=== PATIENT | male | born 1965 | race Caucasian/White ===

== ENCOUNTER → 2020-06-19 13:39 | Outpatient (BNVA) | payer BC, SELFPAY | PROVIDERS: PCP Nurse Practitioner Family; Visit Provider Internal Medicine | DX: M25.50 Pain in unspecified joint (principal); D86.9 Sarcoidosis, unspecified; M32.9 Systemic lupus erythematosus, unspecified; R79.82 Elevated C-reactive protein (CRP); F17.210 Nicotine dependence, cigarettes, uncomplicated; Z79.52 Long term (current) use of systemic steroids | CPT/HCPCS: 99204 ==

== ENCOUNTER 2020-07-12 13:18 | Emergency (ER) | payer BC, SELFPAY ==
[2020-07-12 13:44] VITALS: BP 120/76; PULSE 78; RESP 16; TEMP 36.4; O2SAT 100; BMI 25.8
[2020-07-12 15:27] LABS: Basophils % 0.4 %; Eosinophils # 0.2 10^3/uL (0.0-0.8); Eosinophils % 2.3 %; Hematocrit 29.9 % (42.0-52.0); Hemoglobin 8.7 g/dL (11.7-16.6); Lymphocytes # 5.1 10^3/uL (0.8-4.8); Lymphocytes % 71.8 %; Mean Corpuscular HGB Conc 29.1 g/dL (30.0-36.0); Mean Corpuscular Hemoglobin 19.3 pg (28.0-34.0); Mean Corpuscular Volume 66.3 fL (80-94); Mean Platelet Volume 9.5 fL (7.4-10.4); Monocytes % 13.5 %; Neutrophils % 11.9 %; Nucleated Red Blood Cells % 0 %; Platelet Count 374 10^3/cmm (130-400); Red Blood Count 4.51 10^6/uL (4.1-5.3); Red Cell Distribution Width 21.1 % (12.1-15.1)
[2020-07-12 15:59] LABS: Alanine Aminotransferase 7 U/L (0-41); Albumin Level 3.5 g/dL (3.5-5.2); Alkaline Phosphatase 91 IU/L (40-130); Anion Gap 14.1 (5-19); Aspartate Amino Transferase 13 U/L (0-40); Blood Urea Nitrogen 7 mg/dL (6-20); Calcium 9.3 mg/dL (8.5-10.5); Carbon Dioxide 26 mmol/L (22-29); Chloride 96 mmol/L (98-107); Glomerular Filtration Rate 173.3 mL/min (90-130); Glucose 91 mg/dL (65-115); Osmolality Calculated 272 mOsm/kg (285-295); Potassium 4.1 mmol/L (3.5-5.1); Sodium 132 mmol/L (136-145); Total Bilirubin 0.2 mg/dL (0.15-1.2); Total Protein 7.5 g/dL (6.6-8.7)
[2020-07-12 16:26] LABS: Neutrophils # 0.83 10^3/uL (1.8-7.7)
[2020-07-12 16:29] LABS: Slide Review Slide Review Perform
[2020-07-12 16:32] LABS: Erythrocyte Sedimentation Rate 91 mm/hr (0-10)
--- NOTE | 2020-07-12 16:54 | PC.NURSE ---
Pt was found getting into his vehicle and stated he was in too much pain to continue to sit in the waiting room. Pt stated he was going to see his PCP in the morning. Pt was encouraged to return to ED for worsening or concerning symptoms. Pt verbalizes understanding of this. Pt left with spouse. PAPER COLORER notified.
--- NOTE | 2020-07-12 18:01 | W.ED.GENADLT ---
HPI - General Adult General: Chief complaint: General Medical Stated complaint: RA flare up Time Seen by Provider: 07/12/20 14:42 History of Present Illness: HPI narrative: 55-year-old male patient presents to the emergency department requesting steroids for his rheumatoid arthritis. He reports woke up this morning, was extremely weak, barely can get out of bed. He reports this occurs with joint flare. Under the care of rheumatology here at [facility] yet has not received his first appointment. Remains on prednisone 5 mg daily. 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 He is requesting increase of prednisone dosing to 20 mg daily as this usually helps. He denies fever chills. Reports joint pain to the hands and knees and shoulders. Onset (ago): day(s) (2) Location: left, right, upper extremity and lower extremity Severity: moderate Pain Consistency: constant Relieving factors: other (Prednisone) Exacerbating factors: movement Associated symptoms: Reports weakness; Deny chest pain, diaphoresis, dyspnea, headache(s), nausea, rash, palpitations or vomiting Treatments prior to arrival: none Review of Systems General: Reports: 10 or more systems reviewed and unremarkable except in HPI and below Const: Denies: fever(s), chills or diaphoresis Eyes: Denies: blurry vision or eye redness ENMT: Denies: throat pain, dental pain or disequilibrium Card: Denies: chest pain, palpitations or irregular heart rhythm Resp: Denies: dyspnea, productive cough, non-productive cough or wheezing GI: Denies: abdominal pain, nausea or vomiting : Denies: dysuria Musc: Reports: extremity swelling, joint swelling, joint redness and joint stiffness; Denies: neck pain or back pain Skin/Breast: Denies: rash or pruritus Neuro: Denies: headache(s), weakness in extremities or behavioral changes Psych: Denies: anxiety or depression Zachariah/Lymph: Denies: easy bruising PFSH ED PFSH: Family History (Updated 06/19/20 @ 13:45 by Olga Mario LPN) Father Hypertension Social History (Updated 06/19/20 @ 13:48 by Olga Mario LPN) Smoking and tobacco status: current every day smoker cigarettes Alcohol intake: never Desire information about substance/drug rehabilitation?: No History of recent travel: No Physical Exam Const: COMMON NORMALS: no acute distress, patient oriented x3 and alert GENERAL APPEARANCE: cooperative, comfortable and well hydrated NUTRITIONAL APPEARANCE: thin ORIENTATION/CONSCIOUSNESS: Yes awake, Yes oriented to person, Yes oriented to place and Yes oriented to time HENMT: COMMON NORMALS: normocephalic, Normal external nose present and moist oral mucous membranes HEAD & SCALP: normocephalic NOSE: Normal external nose present Eye: COMMON NORMALS: Equal, round and reactive pupils present and EOMs intact bilaterally GENERAL EYE: appearance normal, both eyes and all related structures PUPIL: Yes Equal, round and reactive pupils present Neck/C-Spine: COMMON NORMALS: full ROM and no lymphadenopathy GENERAL: Yes normal visual inspection and Yes trachea midline CERVICAL SPINE: Yes cervical ROM normal Lymph: LYMPHATIC: no lymphadenopathy noted Chest: COMMONS NORMALS: normal inspection of the chest Resp: COMMON NORMALS: normal respiratory effort and clear to auscultation bilaterally AUSCULTATION: clear to auscultation bilaterally Cardio: COMMON NORMALS: regular rhythm, S1 normal heart sound present, S2 normal heart sound present and Peripheral pulses 2+ throughout RHYTHM: regular rhythm HEART SOUNDS: S1 normal heart sound present and S2 normal heart sound present PERIPHERAL PULSES: Peripheral pulses 2+ throughout GI: COMMON NORMALS: Soft to palpation and non-tender INSPECTION: Yes normal to inspection PALPATION: Yes Soft to palpation : COMMON NORMALS: Yes no CVA tenderness BLADDER/KIDNEY EXAM: Yes no CVA tenderness Back/Pelvis: COMMON NORMALS: no CVA tenderness and thoracic and lumbar spine normal to inspection Extremity: COMMON NORMALS: normal to inspection and capillary refill normal GENERAL: Yes normal exam except as noted RIGHT UPPER EXTREMITY: Yes hand & digits Right hand and digits: Yes inspection (Negative rheumatoid nodules present, negative erythema), Yes palpation (With palpation of the joints noted), Yes ROM exam (Flexion extension noted) and Yes neurovascular exam (Distally intact) LEFT UPPER EXTREMITY: Yes hand & digits Left hand and digits: Yes inspection (Edema to the joints of the distal PIP, rheumatoid nodules present), Yes palpation (Pain with palpation, negative erythema), Yes ROM (Flexion extension noted) and Yes neurovascular exam (Distally intact) RIGHT LOWER EXTREMITY: Yes knee joint (With swelling, negative erythema) Right knee: Yes inspection, Yes palpation (Slight tenderness with palpation), Yes ROM (Normal flexion extension) and Yes neurovascular exam (Distally intact) LEFT LOWER EXTREMITY: Yes knee joint Left knee: Yes inspection (Negative erythema, swelling present), Yes palpation (Pain to anterior palpation of the knee), Yes ROM (Flexion and extension) and Yes neurovascular exam (Distally intact) Neuro: COMMON NORMALS: patient oriented x3 and no focal motor deficits SENSORIUM/ORIENTATION: Yes alert, Yes oriented to person, Yes oriented to place and Yes oriented to time Psych: COMMON NORMALS: mental status grossly normal, Normal thought process present and cooperative ACTIVITY/MOTOR BEHAVIOR: Yes appropriate eye contact THOUGHT PROCESS: Normal thought process present Skin: COMMON NORMALS: no rashes or lesions noted and turgor normal GENERAL SKIN EXAM: no rashes or lesions noted and turgor normal Course ED course: 55-year-old male patient presents to the emergency department with complaints of rheumatoid arthritis concerns/weakness. Absolute neutrophil count noted to be critical at 0.83. Patient left the emergency department, did not want further work-up. I discussed the case with Dr. Szymanski, awaiting bed here in the ED for visualization with patient in a gown to properly evaluate joints/body for infection. He declined and left prior to disposition. Vital Signs: Vital signs: Vital Signs Temperature 97.5 F L 07/12/20 13:44 Pulse Rate 78 07/12/20 13:44 Respiratory Rate 16 07/12/20 13:44 Blood Pressure 120/76 07/12/20 13:44 Pulse Oximetry 100 07/12/20 13:44 MDM - General Adult Lab Data: Labs: Lab Results 07/12/20 07/12/20 07/12/20 Range/Units 15:22 15:22 15:22 WBC 7.0 (4.0-10.0) 10^3/ uL RBC 4.51 (4.1-5.3) 10^6/u L Hgb 8.7 L (11.7-16.6) g/dL Hct 29.9 L (42.0-52.0) % MCV 66.3 L (80-94) fL MCH 19.3 L (28.0-34.0) pg MCHC 29.1 L (30.0-36.0) g/dL RDW 21.1 H (12.1-15.1) % Plt Count 374 (130-400) 10^3/c mm MPV 9.5 (7.4-10.4) fL Neut % (Auto) 11.9 % Lymph % (Auto) 71.8 % [place] % (Auto) 13.5 % Eos % (Auto) 2.3 % Baso % (Auto) 0.4 % Neut # (Auto) 0.83 L* (1.8-7.7) 10^3/u L Lymph # (Auto) 5.1 H (0.8-4.8) 10^3/u L [place] # (Auto) 1.0 H (0.2-0.9) 10^3/u L Eos # (Auto) 0.2 (0.0-0.8) 10^3/u L Baso # (Auto) 0.0 (0.0-0.1) 10^3/u L Nucleated RBC % (a uto) 0 % Nucleated RBCs # 0.0 /100WBC ESR 91 H (0-10) mm/hr Sodium 132 L (136-145) mmol/L Potassium 4.1 (3.5-5.1) mmol/L Chloride 96 L (98-107) mmol/L Carbon Dioxide 26 (22-29) mmol/L Anion Gap 14.1 (5-19) BUN 7 (6-20) mg/dL Creatinine 0.5 L (0.7-1.2) mg/dL GFR Calculation 173.3 H (90-130) mL/min Glucose 91 (65-115) mg/dL Calculated Osmolal ity 272 L (285-295) mOsm/k g Calcium 9.3 (8.5-10.5) mg/dL Total Bilirubin 0.2 (0.15-1.2) mg/dL AST 13 (0-40) U/L ALT 7 (0-41) U/L Alkaline Phosphata se 91 (40-130) IU/L Total Protein 7.5 (6.6-8.7) g/dL Albumin 3.5 (3.5-5.2) g/dL Globulin 4.0 (1.3-4.6) g/dL Discharge Plan Discharge Patient Disposition: Left Against Medical Advice Prescriptions: No Action escitalopram oxalate 20 mg tablet 20 mg PO DAILY RF: 0 buspirone 30 mg tablet 30 mg PO BID RF: 0 alprazolam 0.5 mg tablet 0.5 mg PO BID PRN (Reason: anxiety) RF: 0 quetiapine [Seroquel] 100 mg tablet 200 mg PO DAILY RF: 0 prednisone 5 mg tablet 5 mg PO DAILY Qty: 30 RF: 1 hydroxychloroquine 200 mg tablet 200 mg PO BID Qty: 60 RF: 3 Referrals: ELOINA MITCHELL APRN [Primary Care Provider] - Discharge Date/Time: 07/12/20 16:59 Coding Level of Care Code ED Audiology Director for Minh Callahan
== END 2020-07-12 16:59 | disposition left against medical advice (07) ==
PROVIDERS: Family Medicine; Emergency Provider Nurse Practitioner Family; PCP Nurse Practitioner Family
DX: M06.9 Rheumatoid arthritis, unspecified (principal); Z53.21 Procedure and treatment not carried out due to patient leaving prior to being seen by health care provider; F17.210 Nicotine dependence, cigarettes, uncomplicated
CPT/HCPCS: 12345; 80053; 85025; 85651; 99282

== ENCOUNTER 2020-07-13 10:48 | Emergency (ER) | payer BC, SELFPAY ==
[2020-07-13] VITALS (8 sets, daily range): BP systolic 89–140; BP diastolic 59–75; PULSE 62–82; RESP 17–18; TEMP 36.4; O2SAT 98–100; BMI 25.0
--- NOTE | 2020-07-13 11:02 | XRR_ITS ---
PROCEDURE INFORMATION: Exam: XR Chest, 1 View Exam date and time: 07/13/2020 11:03 AM Age: 55 years old Clinical indication: Dyspnea; Additional info: Syncope TECHNIQUE: Imaging protocol: XR of the chest Views: 1 view. COMPARISON: CR Ribs LEFT w PA Chest [id number] 07/27/2018 1:26 PM FINDINGS: Lungs: Unremarkable. No consolidation. Pleural space: Unremarkable. No pleural effusion. No pneumothorax. Heart/Mediastinum: Unremarkable. No cardiomegaly. Bones/joints: Unremarkable. XR/XR chest 1V portable [id number] IMPRESSION: No acute findings.
--- NOTE | 2020-07-13 11:08 | ECG_ITS ---
[facility] Test Date: 2020-07-13 Pat Name: Yared Scott Department: Room: Gender: Male [employer]: : 1965 Requested By: Cara He Order Number: [id number] Marcie MD: Nohemy Shore M.D. Measurements Intervals [place] Rate: 77 P: 59 UT: 128 QRS: 76 QRSD: 93 T: 70 QT: 357 QTc: 404 Interpretive Statements SINUS RHYTHM Compared to ECG 05/14/2018 18:31:50 No significant changes Electronically Signed On 07-13-2020 11:36:14 [employer]NAGER by Nohemy Shore M.D. [id number] f
--- NOTE | 2020-07-13 11:17 | W.ED.RECABL ---
HPI - Recheck/Abnormal Lab/Rx General: Chief Complaint: Recheck/Abnormal Lab/Rx Stated Complaint: HAVING RA FLARE Time Seen by Provider: 07/13/20 11:01 History of Present Illness: HPI narrative: 55-year-old male presents to the emergency department for continued treatment. He was seen in the emergency department yesterday, left prior to completion of visit. His complaint remains with weakness. He suffers from rheumatoid arthritis. States yesterday, so week he could barely get out of bed. Advised to come to the emergency department for evaluation per professor of literature. He reports of joint pain and weakness, similar to previous RA flares. ESR 91 yesterday. He is reports onset of cough congestion x3 days which was not mentioned yesterday. Reports chest pain that increases with cough x1 month. He continues to smoke. Reports sputum color dark brown. Denies fever but reports chills. History of new onset anemia found by his primary care provider this month. Review of Systems General: Reports: 10 or more systems reviewed and unremarkable except in HPI and below Const: Reports: chills and fatigue; Denies: fever(s) or diaphoresis Eyes: Denies: blurry vision or eye redness ENMT: Denies: throat pain, dental pain or disequilibrium Card: Reports: chest pain (with cough, central chest); Denies: palpitations, irregular heart rhythm or swelling of feet/ankles Resp: Reports: dyspnea (with exertion) and non-productive cough (dark brown); Denies: productive cough or wheezing GI: Denies: abdominal pain, nausea or vomiting : Denies: difficulty urinating, dysuria or urinary urgency Musc: Reports: joint pain (bilateral knees, hands, shoulders) and joint swelling (bilateral knees, bilateral hands); Denies: neck pain or back pain Skin/Breast: Denies: rash or pruritus Neuro: Denies: headache(s), weakness in extremities or behavioral changes Psych: Reports: anxiety (controlled per patient); Denies: depression Zachariah/Lymph: Denies: easy bruising PFSH ED PFSH: Family History (Updated 06/19/20 @ 13:45 by Olga Mario LPN) Father Hypertension Social History (Updated 06/19/20 @ 13:48 by Olga Mario LPN) Smoking and tobacco status: current every day smoker cigarettes Alcohol intake: never Desire information about substance/drug rehabilitation?: No History of recent travel: No Physical Exam Const: COMMON NORMALS: no acute distress, patient oriented x3, healthy appearing and alert GENERAL APPEARANCE: cooperative, comfortable and well hydrated HENMT: COMMON NORMALS: normocephalic, Normal external nose present and moist oral mucous membranes HEAD & SCALP: normocephalic NOSE: Normal external nose present Eye: COMMON NORMALS: Equal, round and reactive pupils present and EOMs intact bilaterally GENERAL EYE: appearance normal, both eyes and all related structures PUPIL: Yes Equal, round and reactive pupils present Neck/C-Spine: COMMON NORMALS: full ROM and no lymphadenopathy GENERAL: Yes normal visual inspection and Yes trachea midline CERVICAL SPINE: Yes cervical ROM normal Lymph: LYMPHATIC: no lymphadenopathy noted Chest: COMMONS NORMALS: normal inspection of the chest Resp: COMMON NORMALS: normal respiratory effort and clear to auscultation bilaterally AUSCULTATION: clear to auscultation bilaterally Cardio: COMMON NORMALS: regular rhythm, S1 normal heart sound present and S2 normal heart sound present RHYTHM: regular rhythm HEART SOUNDS: S1 normal heart sound present and S2 normal heart sound present GI: COMMON NORMALS: Soft to palpation and non-tender INSPECTION: Yes normal to inspection PALPATION: Yes Soft to palpation : COMMON NORMALS: Yes no CVA tenderness BLADDER/KIDNEY EXAM: Yes no CVA tenderness Back/Pelvis: COMMON NORMALS: no CVA tenderness and thoracic and lumbar spine normal to inspection Extremity: COMMON NORMALS: normal to inspection, full ROM and capillary refill normal GENERAL: Yes normal exam except as noted OTHER: Bilateral hands with spongy rheumatoid PIP, negative erythema, bilateral knees with anterior swelling, suggestive of RA, negative erythema Neuro: COMMON NORMALS: patient oriented x3 and no focal motor deficits SENSORIUM/ORIENTATION: Yes alert Psych: COMMON NORMALS: mental status grossly normal, Normal thought process present and cooperative ACTIVITY/MOTOR BEHAVIOR: Yes appropriate eye contact THOUGHT PROCESS: Normal thought process present Skin: COMMON NORMALS: no rashes or lesions noted and turgor normal GENERAL SKIN EXAM: no rashes or lesions noted and turgor normal Course ED course: 55-year-old male patient presents to the emergency room with generalized weakness and RA flare symptoms. He was found to test positive for Covid. CTA chest was negative. D-dimer greater than 20. Case discussed with Dr. Horne, dexamethasone administered for rheumatoid pain. ANC was found to be abnormally low, consistent with possible Covid infection. Patient reports he does take aspirin daily, 81 mg. He was advised to continue with this treatment. Covid infection was discussed with the patient in depth. Advised to follow-up with his primary care provider this week as well as repeat CBC to ensure ANC does not fall below 500. O2 saturation during his stay remained above 92%. He will be sent home with oxygen saturation monitor, advised to return to the emergency department if you develop hypoxia, oxygen level less than 90. Verbalized understanding, denies questions. Agrees to remain in quarantine for 14 days. Vital Signs: Vital signs: Vital Signs Temperature 97.5 F L 07/13/20 10:58 Pulse Rate 71 07/13/20 16:11 Respiratory Rate 18 07/13/20 16:11 Blood Pressure 140/59 07/13/20 16:11 Pulse Oximetry 98 07/13/20 16:11 MDM - Recheck/Abnormal Lab/Rx Lab Data: Labs: Lab Results 07/13/20 07/13/20 07/13/20 Range/Units 11:32 11:32 11:32 WBC 5.7 (4.0-10.0) 10^3/ uL RBC 4.63 (4.1-5.3) 10^6/u L Hgb 8.9 L (11.7-16.6) g/dL Hct 30.7 L (42.0-52.0) % MCV 66.3 L (80-94) fL MCH 19.2 L (28.0-34.0) pg MCHC 29.0 L (30.0-36.0) g/dL RDW 21.2 H (12.1-15.1) % Plt Count 382 (130-400) 10^3/c mm MPV 9.6 (7.4-10.4) fL Neut % (Auto) 12.3 % Lymph % (Auto) 68.8 % [place] % (Auto) 16.1 % Eos % (Auto) 2.1 % Baso % (Auto) 0.5 % Neut # (Auto) 0.71 L* (1.8-7.7) 10^3/u L Lymph # (Auto) 3.9 (0.8-4.8) 10^3/u L [place] # (Auto) 0.9 (0.2-0.9) 10^3/u L Eos # (Auto) 0.1 (0.0-0.8) 10^3/u L Baso # (Auto) 0.0 (0.0-0.1) 10^3/u L Nucleated RBC % (a uto) 0 % Nucleated RBCs # 0.0 /100WBC D-Dimer >= 20.00 H (0-0.59) ug/mIFE U Sodium 132 L (136-145) mmol/L Potassium 4.5 (3.5-5.1) mmol/L Chloride 97 L (98-107) mmol/L Carbon Dioxide 25 (22-29) mmol/L Anion Gap 14.5 (5-19) BUN 10 (6-20) mg/dL Creatinine 0.6 L (0.7-1.2) mg/dL GFR Calculation 140.4 H (90-130) mL/min Glucose 89 (65-115) mg/dL Calculated Osmolal ity 273 L (285-295) mOsm/k g Calcium 9.2 (8.5-10.5) mg/dL Ferritin 76 (30-400) ng/mL Total Bilirubin 0.2 (0.15-1.2) mg/dL AST 13 (0-40) U/L ALT 7 (0-41) U/L Alkaline Phosphata se 96 (40-130) IU/L Troponin T Baselin e (0-15) ng/L Troponin T 120 Min [place] (0-15) ng/L Delta Troponin T (0-10) ABS# C-Reactive Protein 86.5 H (0.0-4.9) mg/L Total Protein 6.9 (6.6-8.7) g/dL Albumin 3.5 (3.5-5.2) g/dL Globulin 3.4 (1.3-4.6) g/dL SARS-CoV-2 Ag (Rap id) (Negative) 07/13/20 07/13/20 07/13/20 Range/Units 11:32 14:00 14:06 WBC (4.0-10.0) 10^3/ uL RBC (4.1-5.3) 10^6/u L Hgb (11.7-16.6) g/dL Hct (42.0-52.0) % MCV (80-94) fL MCH (28.0-34.0) pg MCHC (30.0-36.0) g/dL RDW (12.1-15.1) % Plt Count (130-400) 10^3/c mm MPV (7.4-10.4) fL Neut % (Auto) % Lymph % (Auto) % [place] % (Auto) % Eos % (Auto) % Baso % (Auto) % Neut # (Auto) (1.8-7.7) 10^3/u L Lymph # (Auto) (0.8-4.8) 10^3/u L [place] # (Auto) (0.2-0.9) 10^3/u L Eos # (Auto) (0.0-0.8) 10^3/u L Baso # (Auto) (0.0-0.1) 10^3/u L Nucleated RBC % (a uto) % Nucleated RBCs # /100WBC D-Dimer (0-0.59) ug/mIFE U Sodium (136-145) mmol/L Potassium (3.5-5.1) mmol/L Chloride (98-107) mmol/L Carbon Dioxide (22-29) mmol/L Anion Gap (5-19) BUN (6-20) mg/dL Creatinine (0.7-1.2) mg/dL GFR Calculation (90-130) mL/min Glucose (65-115) mg/dL Calculated Osmolal ity (285-295) mOsm/k g Calcium (8.5-10.5) mg/dL Ferritin (30-400) ng/mL Total Bilirubin (0.15-1.2) mg/dL AST (0-40) U/L ALT (0-41) U/L Alkaline Phosphata se (40-130) IU/L Troponin T Baselin e 6 (0-15) ng/L Troponin T 120 Min [place] 6.00 (0-15) ng/L Delta Troponin T 0 (0-10) ABS# C-Reactive Protein (0.0-4.9) mg/L Total Protein (6.6-8.7) g/dL Albumin (3.5-5.2) g/dL Globulin (1.3-4.6) g/dL SARS-CoV-2 Ag (Rap id) Positive H (Negative) Imaging Data^: CXR: Radiologist's impression: [address] [address] XRay Report Signed Patient: Yared Scott Unit #: [id number] : 1965 Age/Sex: 55 / M ADM Date: 07/13/20 Loc: ER Room/Bed: Attending Dr: Ordering Provider/Ordering MD: Cara Li Date of Service: 07/13/20 Procedure(s): XR chest 1V portable [id number] Accession Number(s): [id number] Report Number: [id number] PROCEDURE INFORMATION: Exam: XR Chest, 1 View Exam date and time: 07/13/2020 11:03 AM Age: 55 years old Clinical indication: Dyspnea; Additional info: Syncope TECHNIQUE: Imaging protocol: XR of the chest Views: 1 view. COMPARISON: CR Ribs LEFT w PA Chest [id number] 07/27/2018 1:26 PM FINDINGS: Lungs: Unremarkable. No consolidation. Pleural space: Unremarkable. No pleural effusion. No pneumothorax. Heart/Mediastinum: Unremarkable. No cardiomegaly. Bones/joints: Unremarkable. XR/XR chest 1V portable [id number] IMPRESSION: No acute findings. Dictated By: Damien Nino Signed By: Damien Nino Signed Date/Time: 07/13/20 1158 DD/ 1157 CT Chest: Radiologist's impression: [address] [address] [address] Scan Report Signed Patient: Yared Scott Unit #: [id number] : 1965 Age/Sex: 55 / M ADM Date: 07/13/20 Loc: ER Room/Bed: Attending Dr: Ordering Provider/Ordering MD: Cara Li Date of Service: 07/13/20 Procedure(s): CT angio chest PE protcl [id number] Accession Number(s): [id number] Report Number: [id number] PROCEDURE INFORMATION: Exam: CT Angiography Chest With Contrast Exam date and time: 07/13/2020 1:20 PM Age: 55 years old Clinical indication: Patient HX: Cough, congestion, weakness, elev d-dimer; Additional info: Cp TECHNIQUE: Imaging protocol: Computed tomographic angiography of the chest with intravenous contrast. 3D rendering (Not supervised by radiologist): MIP and/or 3D reconstructed images were created by the technologist. Radiation optimization: All CT scans at this facility use at least one of these dose optimization techniques: automated exposure control; mA and/or kV adjustment per patient size (includes targeted exams where dose is matched to clinical indication); or iterative reconstruction. Contrast material: OMNI 350; Contrast volume: 66 ml; Contrast route: INTRAVENOUS (IV); COMPARISON: CR (CHEST, ) 07/13/2020 11:25 AM RADIATION DOSE METRICS: Total DLP (mGy-cm): 599.52 FINDINGS: Pulmonary arteries: Normal. No pulmonary emboli. Aorta: Unremarkable. No aortic aneurysm. No aortic dissection. Lungs: There are few scattered interstitial fibrotic changes in the lungs. Benign calcified granulomas are present in the lungs. There is no pneumonia. Pleural space: Unremarkable. No pneumothorax. No pleural effusion. Heart: Calcifications are present in the coronary arteries. The heart is not enlarged. Mediastinal space: There is a small sliding hiatal hernia. Lymph nodes: There are benign calcified lymph nodes in the mediastinum and benign pulmonary calcified granulomas. Bones/joints: Degenerative changes are present in the spine with sclerosis and osteophytes. Soft tissues: Unremarkable. CT/CT angio chest PE protcl [id number] IMPRESSION: 1. No evidence of pulmonary embolus or aortic dissection. 2. Benign calcified granulomatous disease. 3. Coronary artery calcifications. Radiation Dose CTDIVOL = (mGy): DLP = 599.52 (mGy EKG Data^: EKG 1: EKG interpretation date: 07/13/20 EKG interpretation time: 11:29 Computer generated interpretation: Sinus rhythm, normal ECG EKG 2: EKG interpretation date: 07/13/20 EKG interpretation time: 14:08 Prior EKG tracings: available for review Computer generated interpretation: Sinus rhythm, normal ECG Discharge Plan Discharge Patient Disposition: Home Clinical Impression: COVID-19, Rheumatoid arthritis flare Condition: Stable Prescriptions: New hydrocodone-acetaminophen 5-325 mg tablet 1 tab PO QID PRN (Reason: pain) Qty: 10 RF: 0 Continued escitalopram oxalate 20 mg tablet 20 mg PO DAILY RF: 0 buspirone 30 mg tablet 30 mg PO BID RF: 0 alprazolam 0.5 mg tablet 0.5 mg PO BID PRN (Reason: anxiety) RF: 0 Discontinued quetiapine [Seroquel] 100 mg tablet 200 mg PO DAILY RF: 0 prednisone 5 mg tablet 5 mg PO DAILY Qty: 30 RF: 1 No Action aspirin 81 mg Tablet,Chewable 81 mg PO DAILY RF: 0 Discharge Orders: Discharge Order (Routine); Ordered 07/13/20 Ordered By: Cara Li Referrals: ELOINA MITCHELL APRN [Primary Care Provider] - Discharge Diet: Usual diet Discharge Activity: Limit activity as instructed Patient Instructions: Rheumatoid Arthritis (ED), Viral Syndrome (ED) Activity Restrictions/Additional Instructions: Push fluids as you have tested positive for COVID-19, you will require lots of fluids orally May take Tylenol/ibuprofen as needed for pain/fever Remain in quarantine for 14 days, you will need to follow-up with your primary care provider this week to ensure you are doing okay. Monitor your oxygen saturation frequently, normal oxygen level should be greater than 92%, if oxygen level falls below 92%, take some deep breaths, if oxygen falls below 90%, you will need to return to the emergency department. Follow-up with your professor of literature in the next 2 weeks. Telemedicine visit should be available Stop Seroquel secondary to abnormal findings on your CBC. Repeat CBC will be needed this week. Discharge Date/Time: 07/13/20 16:14 Coding Level of Care Code ED Business Continuity Specialist for Chg Fwd Exam Comprehensive
[2020-07-13 11:42] LABS: Basophils % 0.5 %; Eosinophils # 0.1 10^3/uL (0.0-0.8); Eosinophils % 2.1 %; Hematocrit 30.7 % (42.0-52.0); Hemoglobin 8.9 g/dL (11.7-16.6); Lymphocytes # 3.9 10^3/uL (0.8-4.8); Lymphocytes % 68.8 %; Mean Corpuscular Hemoglobin 19.2 pg (28.0-34.0); Mean Corpuscular Volume 66.3 fL (80-94); Mean Platelet Volume 9.6 fL (7.4-10.4); Monocytes # 0.9 10^3/uL (0.2-0.9); Monocytes % 16.1 %; Neutrophils % 12.3 %; Nucleated Red Blood Cells % 0 %; Platelet Count 382 10^3/cmm (130-400); Red Blood Count 4.63 10^6/uL (4.1-5.3); Red Cell Distribution Width 21.2 % (12.1-15.1); White Blood Count 5.7 10^3/uL (4.0-10.0)
[2020-07-13 11:59] LABS: Neutrophils # 0.71 10^3/uL (1.8-7.7)
[2020-07-13 12:12] LABS: Troponin(5th) Baseline 6 ng/L (0-15)
[2020-07-13 12:13] LABS: Alanine Aminotransferase 7 U/L (0-41); Albumin Level 3.5 g/dL (3.5-5.2); Alkaline Phosphatase 96 IU/L (40-130); Anion Gap 14.5 (5-19); Aspartate Amino Transferase 13 U/L (0-40); Blood Urea Nitrogen 10 mg/dL (6-20); C Reactive Protein 86.5 mg/L (0.0-4.9); Calcium 9.2 mg/dL (8.5-10.5); Carbon Dioxide 25 mmol/L (22-29); Chloride 97 mmol/L (98-107); Ferritin 76 ng/mL (30-400); Globulin 3.4 g/dL (1.3-4.6); Glomerular Filtration Rate 140.4 mL/min (90-130); Glucose 89 mg/dL (65-115); Osmolality Calculated 273 mOsm/kg (285-295); Potassium 4.5 mmol/L (3.5-5.1); Sodium 132 mmol/L (136-145); Total Bilirubin 0.2 mg/dL (0.15-1.2); Total Protein 6.9 g/dL (6.6-8.7)
[2020-07-13] MEDS: sodium chloride 0.9% 500 ML 999 ML IV (12:15)
[2020-07-13 12:23] LABS: D Dimer >= 20.00 ug/mIFEU (0-0.59)
--- NOTE | 2020-07-13 12:46 | CTR_ITS ---
PROCEDURE INFORMATION: Exam: CT Angiography Chest With Contrast Exam date and time: 07/13/2020 1:20 PM Age: 55 years old Clinical indication: Patient HX: Cough, congestion, weakness, elev d-dimer; Additional info: Cp TECHNIQUE: Imaging protocol: Computed tomographic angiography of the chest with intravenous contrast. 3D rendering (Not supervised by radiologist): MIP and/or 3D reconstructed images were created by the technologist. Radiation optimization: All CT scans at this facility use at least one of these dose optimization techniques: automated exposure control; mA and/or kV adjustment per patient size (includes targeted exams where dose is matched to clinical indication); or iterative reconstruction. Contrast material: OMNI 350; Contrast volume: 66 ml; Contrast route: INTRAVENOUS (IV); COMPARISON: CR (CHEST, ) 07/13/2020 11:25 AM RADIATION DOSE METRICS: Total DLP (mGy-cm): 599.52 FINDINGS: Pulmonary arteries: Normal. No pulmonary emboli. Aorta: Unremarkable. No aortic aneurysm. No aortic dissection. Lungs: There are few scattered interstitial fibrotic changes in the lungs. Benign calcified granulomas are present in the lungs. There is no pneumonia. Pleural space: Unremarkable. No pneumothorax. No pleural effusion. Heart: Calcifications are present in the coronary arteries. The heart is not enlarged. Mediastinal space: There is a small sliding hiatal hernia. Lymph nodes: There are benign calcified lymph nodes in the mediastinum and benign pulmonary calcified granulomas. Bones/joints: Degenerative changes are present in the spine with sclerosis and osteophytes. Soft tissues: Unremarkable. CT/CT angio chest PE protcl [id number] IMPRESSION: 1. No evidence of pulmonary embolus or aortic dissection. 2. Benign calcified granulomatous disease. 3. Coronary artery calcifications. Radiation Dose CTDIVOL = (mGy): DLP = 599.52 (mGy-cm)
--- NOTE | 2020-07-13 13:08 | ECG_ITS ---
[facility] Test Date: 2020-07-13 Pat Name: Yared Scott Department: Room: Gender: Male Automotive Quality Engineer: : 1965 Requested By: Cara He Order Number: [id number] Marcie MD: Nohemy Shore M.D. Measurements Intervals Colver Rate: 70 P: 40 PA: 134 QRS: 57 QRSD: 92 T: 46 QT: 376 QTc: 408 Interpretive Statements SINUS RHYTHM Compared to ECG 07/13/2020 11:29:13 No significant changes Electronically Signed On 07-14-2020 9:30:44 ORTHOPAEDIC NURSE by Nohemy Shore M.D. [email or web address]
[2020-07-13] MEDS: iohexol 350 mg/mL 100 mL Btl IV (13:30)
[2020-07-13] MEDS: ondansetron 2 mg/ML SDV 2 mL 4 MG IVP (13:41)
[2020-07-13] MEDS: HYDROcodone-acetaminophen 5-325 mg Tablet 1 TAB PO (13:42)
[2020-07-13 14:37] LABS: Troponin 5 2HR Delta 0 ABS# (0-10)
[2020-07-13 15:12] LABS: SARS Covid-2 Antigen Positive (Negative)
[2020-07-13] MEDS: dexamethasone 4 mg Tablet 10 MG PO (16:10)
[2020-07-16 06:12] LABS: Coronavirus Lab Test PTC Negative
--- NOTE | 2020-07-16 15:16 | DCPLANNER ---
public events facilities rental manager had message to speak with patient about getting a follow up appointment for patient with primary care. public events facilities rental manager called , unable to speak with patient at this time, a voicemail was left for patient to return computer forensics examiner phone call.
== END 2020-07-13 16:14 | disposition home or self-care (01) ==
PROVIDERS: Emergency Provider Nurse Practitioner Family; PCP Nurse Practitioner Family
DX: U07.1 COVID-19 (principal); M06.9 Rheumatoid arthritis, unspecified; F17.210 Nicotine dependence, cigarettes, uncomplicated
CPT/HCPCS: 12345; 71045; 71275; 80053; 82728; 84484; 85025; 85378; 86140; 87426; 87635; 93005; 96374; 96375; 99283; 99284; J0131; J2405; J7040; J8540; Q9967

== ENCOUNTER → 2023-01-12 15:11 | Outpatient (BNVA) | payer MEDICAID, SELFPAY | PROVIDERS: PCP Nurse Practitioner Family; Visit Provider Surgery | DX: K40.90 Unilateral inguinal hernia, without obstruction or gangrene, not specified as recurrent (principal) | CPT/HCPCS: 99203 ==

== ENCOUNTER → 2023-01-14 13:15 | Outpatient (BNVA) | payer MEDICAID, SELFPAY | PROVIDERS: PCP Nurse Practitioner Family; Visit Provider Internal Medicine | DX: M06.9 Rheumatoid arthritis, unspecified (principal); R79.82 Elevated C-reactive protein (CRP); M25.50 Pain in unspecified joint; Z11.59 Encounter for screening for other viral diseases; Z11.1 Encounter for screening for respiratory tuberculosis | CPT/HCPCS: 36415; 80053; 83520; 85025; 85651; 86140; 86480; 86704; 86803; 87340; 87522; 99214 ==

== ENCOUNTER 2023-04-07 12:41 | Outpatient (CLI) | payer MEDICAID, SELFPAY ==
--- NOTE | 2023-04-07 13:11 | XRR_ITS ---
PROCEDURE INFORMATION: Exam: XR Right Hand Exam date and time: 04/07/2023 1:35 PM Age: 57 years old Clinical indication: Abnormal findings; Abnormal lab test; Other: Elevated c-reactive protein (crp); Patient HX: Hand pain; Additional info: R79.82 - elevated c-reactive protein (crp) TECHNIQUE: Imaging protocol: Radiologic exam of the right hand. Views: 1 or 2 views. COMPARISON: CR XR wrist RT min 3V* [id number] 08/15/2019 2:36 PM FINDINGS: Bones/joints: Severe arthritic changes are seen in the IP joint of the thumb and to a lesser extent the DIP joint of the middle finger. Interphalangeal joint space narrowing is noted diffusely. Moderate to severe degenerative changes are seen in the lateral wrist particularly in the distal navicular and 1st FCI articulations. The 2nd and 3rd MCP joints are not well seen due to some flexion with resultant bony overlap. A cyst or erosion is seen along the medial proximal edge of the proximal phalanx of the 5th finger. Cysts or erosions are seen in the articulating surface of the distal radius and in the distal navicular. Soft tissues: Normal. XR/XR hand RT 2V [id number] IMPRESSION: Multiple abnormal findings as described above.
--- NOTE | 2023-04-07 13:11 | XRR_ITS ---
PROCEDURE INFORMATION: Exam: XR Left Hand Exam date and time: 04/07/2023 1:35 PM Age: 57 years old Clinical indication: Abnormal findings; Abnormal lab test; Other: Elevated c-reactive protein (crp); Patient HX: Hand pain. Best lateral possible. ; Additional info: R79.82 - elevated c-reactive protein (crp) TECHNIQUE: Imaging protocol: Radiologic exam of the left hand. Views: 1 or 2 views. COMPARISON: CR XR wrist LT min 3V* [id number] 08/15/2019 2:36 PM FINDINGS: Bones/joints: Considerable interval changes noted with new cystic or erosive changes noted in the 2nd and 3rd MCP joints, the 1st LONGTERM joint and to a lesser extent the 4th MCP joint. No fracture or other acute abnormality. Soft tissues: Normal. XR/XR hand LT 2V [id number] IMPRESSION: New arthritic findings as described above.
== END 2023-04-07 12:42 | disposition home or self-care (01) ==
PROVIDERS: PCP Nurse Practitioner Family; Visit Provider Internal Medicine
DX: R79.82 Elevated C-reactive protein (CRP) (principal); M19.042 Primary osteoarthritis, left hand; M19.041 Primary osteoarthritis, right hand; R93.6 Abnormal findings on diagnostic imaging of limbs
CPT/HCPCS: 73120

== ENCOUNTER 2023-04-19 08:06 | Day surgery (SDC) | payer MEDICAID, SELFPAY ==
[2023-04-16 13:09] VITALS: BMI 21.2
[2023-04-19] VITALS (13 sets, daily range): BP systolic 117–175; BP diastolic 68–93; PULSE 53–75; RESP 16–18; TEMP 36.1–36.4; O2SAT 96–100
--- NOTE | 2023-04-19 08:34 | PM.HP ---
Providers/Chief Complaint Primary Care Provider: ELOINA MITCHELL APRN Chief Complaint: 57798 K40.90 History of Present Illness Yared Scott is a 57 year old male Medications/Allergies Home Medications Medication Instructions Recorded Confirmed Last Taken Type hydroxychloroquine 200 mg tablet 200 mg PO BID 01/12/23 04/16/23 04/16/23 History tamsulosin 0.4 mg capsule 0.4 mg PO DAILY 01/12/23 04/16/23 04/16/23 History prednisone 5 mg tablet See Rx Instructions PO DAILY #90 04/16/23 Unknown Rx tabs Allergies Allergy/AdvReac Type Severity Reaction Status Date / Time No Known Allergies Allergy Verified 04/16/23 13:06 PFSH Acute PFSH: Medical History Anxiety and depression Rheumatoid arthritis Surgical History Hx of hernia repair (~2017) Hx of oral surgery (~2017) jaw wiring Family History Father Hypertension Social History Smoking and tobacco status: current every day smoker cigarettes Alcohol intake: never Substance/Drug Use: current Other substance/drug use details: former meth use Desire information about substance/drug rehabilitation?: No Vitals/I&O/Wt Last Vital Signs Temp 97.6 F 04/19/23 08:29 Pulse 75 04/19/23 08:29 Resp 18 04/19/23 08:29 BP 117/68 04/19/23 08:29 Pulse Ox 98 04/19/23 08:29 O2 Del Method Room Air 04/19/23 08:29 A&P Assessment and plan (1) Left inguinal hernia: Plan Laparoscopic left inguinal hernia repair with mesh The risks and benefits of the procedure, including but not limited to, bleeding, infection, mesh infection requiring mesh excision antibiotic therapy and repeat surgery, damage surrounding structures, orchiectomy, conversion to an open procedure, scar, numbness, pain, recurrence and/or need for a bilateral repair were explained to the patient. Patient is understanding of the risks and wishes to proceed. Attestations Medical Necessity Statement*: Home Coding Level of Care Code Acute Code for Chg Fwd Diagnoses Left inguinal hernia K40.90
[2023-04-19] MEDS: sodium chloride 0.9% 1,000 ML 30 ML IV (08:58)
[2023-04-19] MEDS: ceFAZolin 2,000 MG in sodium chloride 0.9% (plus) 50 ML 100 MG IV (10:28)
[2023-04-19] MEDS: lidocaine-epi 2% 20 mL INJ INJECTION (10:58)
--- NOTE | 2023-04-19 11:25 | PM.OP ---
Operative Report Date of procedure: April 19, 2023 Pre-op diagnosis: Left inguinal hernia Post-op diagnosis: Indirect left inguinal hernia Procedure done: Laparoscopic repair of left inguinal hernia with mesh Implants: Left large 3D max Bard mesh Surgeon: Dr. Jae Kerr, Anesthesia: General Estimated blood loss (mL): 5 Complications: None apparent Brief History: This very pleasant 57-year-old gentleman who presented my office with a left inguinal hernia. Laparoscopic repair with mesh was indicated. The risk and benefits were Splane to documented. Procedure: Patient was wheeled into the operative room and placed on the OR table in a supine position. Abdomen was inspected prepped and draped in usual sterile fashion. Time-out was performed and all present were in agreement. A 15 blade scalpel was used to make 1.2 centimeter incision infraumbilically. Combination of sharp and blunt dissection was performed down to the anterior rectus sheath which was opened sharply. The dissecting balloon was then inserted into the space of Retzius and blown up. We put the camera into the port and identified that we were in the correct space. I then placed 2 5 millimeter trocars suprapubically in the midline. I then used endokitners to bluntly dissect in the space of Retzius out laterally. An indirect inguinal hernia was identified on the left. Blunt dissection was performed to dissect down the hernia sac until the vas deferens dove medially. A large left inguinal mesh was then placed into the space of Retzius. The mesh was unrolled and tacked once medially at the pubic bone. The mesh laid out nicely over the spermatic cord. I watched the hernia sac remained in place as insufflation was removed. Incisions were closed with 4-0 Monocryl in a subcuticular interrupted fashion. Skin glue was applied. Patient tolerated the procedure well.
[2023-04-19] MEDS: fentaNYL 50 mcg/mL INJ 2mL IVP (12:01)
[2023-04-19] MEDS: HYDROcodone-acetaminophen 10-325 mg Tablet 1 TAB PO (12:41)
--- NOTE | 2023-04-19 13:18 | ANES.PREANE2 ---
Pre-Anesthetic Assessment Height/Weight: Height 1.73 m Weight 63.503 kg Temp Pulse Resp BP Pulse Ox O2 Del Method O2 Flow Rate 97.4 F L 62 18 149/86 96 Room Air 6 04/19/23 12:45 04/19/23 12:45 04/19/23 12:45 04/19/23 12:45 04/19/23 12:45 04/19/23 12:45 04/19/23 11:34 Operation Date: 04/19/23 09:40 Proposed Procedures p 04996 lap left inguinal hernia with mesh 87099,K40.90(Left) - Jae Kerr DO Familial anesthetic complications: none Was Beta Alexis taken within 24 hours: N/A Was Clonidine taken within 24 hours: N/A Last intake: Intake Last Liquid Date 04/18/23 Last Liquid Time 00:00 Last Solid Date 04/18/23 Last Solid Time 22:00 Social Tobacco and No alcohol Exam alert, oriented x 3 and regular rate & rhythm Airway Submandibular: within normal limits Cervical ROM: within normal limits Mallampati: Class I Dentition: chipped (lower poor dentition) and false (upper) Pulmonary Chronic Obstructive Pulmonary Disease Metabolic Chronic steroid Musc/skel Rheumatoid Arthritis Anesthetic Plan ASA status: 3 Anesthesia: General Medications/Allergies Home Medications Medication Instructions Recorded Confirmed Last Taken Type hydroxychloroquine 200 mg tablet 200 mg PO BID 01/12/23 04/16/23 04/16/23 History tamsulosin 0.4 mg capsule 0.4 mg PO DAILY 01/12/23 04/16/23 04/16/23 History prednisone 5 mg tablet See Rx Instructions PO DAILY #90 04/16/23 04/19/23 Unknown Rx tabs docusate sodium 100 mg capsule 100 mg PO BID #14 caps 04/19/23 Unknown Rx (Colace) hydrocodone 10 mg-acetaminophen 1 tab PO Q6H PRN pain #20 tabs 04/19/23 Unknown Rx 325 mg tablet Allergies Allergy/AdvReac Type Severity Reaction Status Date / Time methotrexate Allergy ALGY-Hives Verified 04/19/23 08:38 Current Medications Generic Name Dose Route Start Last Admin Trade Name Freq PRN Reason Stop Dose Admin Fentanyl 50 mcg 04/19/23 12:05 04/19/23 12:01 Fentanyl 50 Mcg/Ml Inj 2ml IVP 04/20/23 12:05 50 mcg Q5M PRN Administration Pain level 6-10 PACU Phase I Sodium Chloride 1,000 mls @ 30 mls/hr 04/19/23 08:15 04/19/23 13:06 Sodium Chloride 0.9% IV 04/20/23 08:14 Infused .Q24H MYKEL Infusion PFSH Anesthesia Medical History Anxiety and depression Rheumatoid arthritis Surgical History Hx of hernia repair (~2017) Hx of oral surgery (~2017) jaw wiring Family History Father Hypertension Social History Smoking and tobacco status: current every day smoker cigarettes Alcohol intake: never Substance/Drug Use: current Other substance/drug use details: former meth use Desire information about substance/drug rehabilitation?: No Data Anesthesia Cardiac Studies: No Data to Display
--- NOTE | 2023-04-19 16:54 | ANE.PACU2 ---
Inpatient post-anesthesia follow up: Airway intact: Yes Vital signs: Temperature 97.4 F Pulse Rate 62 Respiratory Rate 18 Blood Pressure 149/86 Pulse Oximetry 96 Oxygen Delivery Me thod Room Air Oxygen Flow Rate 6 Fraction of Inspir ed Oxygen Hydration adequate: Yes Nausea and vomiting: No Pain level: 3 Mental status: Baseline
== END 2023-04-19 12:47 | disposition home or self-care (01) ==
PROVIDERS: PCP Nurse Practitioner Family; Visit Provider Surgery
PROC: (CPT 49650; principal; 2023-04-19 09:30)
DX: K40.90 Unilateral inguinal hernia, without obstruction or gangrene, not specified as recurrent (principal); J44.9 Chronic obstructive pulmonary disease, unspecified; M06.9 Rheumatoid arthritis, unspecified; F17.210 Nicotine dependence, cigarettes, uncomplicated
CPT/HCPCS: 49650; 51702; C1781; J0690; J1100; J2405; J2704; J2710; J3010; J3490; J7030

== ENCOUNTER → 2023-05-07 09:48 | Outpatient (BNVA) | payer MEDICAID, SELFPAY | PROVIDERS: PCP Nurse Practitioner Family; Visit Provider Surgery | DX: Z98.890 Other specified postprocedural states (principal); Z87.19 Personal history of other diseases of the digestive system | CPT/HCPCS: 99024 ==

== ENCOUNTER → 2023-05-20 15:10 | Outpatient (BNVA) | payer MEDICAID, SELFPAY | PROVIDERS: PCP Nurse Practitioner Family; Visit Provider Internal Medicine | DX: R79.82 Elevated C-reactive protein (CRP) (principal); M25.50 Pain in unspecified joint; M06.9 Rheumatoid arthritis, unspecified | CPT/HCPCS: 36415; 80053; 85025; 85651; 86140; 99214 ==

== ENCOUNTER → 2023-08-18 13:04 | Outpatient (BNVA) | payer MEDICAID, SELFPAY | PROVIDERS: PCP Nurse Practitioner Family; Visit Provider Internal Medicine | DX: R79.82 Elevated C-reactive protein (CRP) (principal); M06.9 Rheumatoid arthritis, unspecified; M25.50 Pain in unspecified joint | CPT/HCPCS: 99214 ==

== ENCOUNTER 2023-09-28 17:17 | Emergency (ER) | payer MEDICAID, SELFPAY ==
[2023-09-28 17:29] VITALS: BMI 19.0
[2023-09-28] MEDS: LORazepam 1 mg Tablet PO (18:15)
[2023-09-28 18:23] LABS: Basophils % 0.4 %; Eosinophils # 0.1 10^3/uL (0.0-0.8); Eosinophils % 0.9 %; Hematocrit 39.1 % (37-53); Lymphocytes # 1.2 10^3/uL (0.8-4.8); Lymphocytes % 13.1 %; Mean Corpuscular HGB Conc 31.5 g/dL (30-55); Mean Corpuscular Hemoglobin 25.9 pg (27-33); Mean Corpuscular Volume 82.3 fl (82-101); Mean Platelet Volume 10.6 fL (7.4-10.4); Monocytes # 0.5 10^3/uL (0.2-0.9); Monocytes % 5.5 %; Neutrophils # 7.52 10^3/uL (1.8-7.7); Neutrophils % 79.9 %; Nucleated Red Blood Cells % 0 %; Platelet Count 488 10^3/cmm (157-399); Red Blood Count 4.75 10^6/uL (3.85-5.65); White Blood Count 9.41 10^3/uL (3.29-11.43)
[2023-09-28 18:24] VITALS: RESP 18; O2SAT 98
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
[2023-09-28 18:38] LABS: Alanine Aminotransferase 11 U/L (0-41); Albumin Level 3.8 g/dL (3.5-5.2); Alkaline Phosphatase 108 U/L (40-130); Anion Gap 16.1 (5-19); Aspartate Amino Transferase 14 U/L (0-40); Blood Urea Nitrogen 18 mg/dL (6-20); Calcium 9.8 mg/dL (8.5-10.5); Carbon Dioxide 24 mmol/L (22-29); Chloride 100 mmol/L (98-107); Globulin 4.3 g/dL (1.3-4.6); Glomerular Filtration Rate 138.9 mL/min (90-130); Glucose 98 mg/dL (65-115); Osmolality Calculated 284 mOsm/kg (285-295); Potassium 4.1 mmol/L (3.5-5.1); Sodium 136 mmol/L (136-145); Total Bilirubin 0.2 mg/dL (0.15-1.2); Total Protein 8.1 g/dL (6.6-8.7)
[2023-09-28 18:40] LABS: Acetaminophen < 5.0 ug/mL (10-30); Alcohol Level < 10 mg/dL (0-10); Salicylate < 0.3 mg/dL (3-10)
[2023-09-28 18:44] LABS: Amphetamines Screen Urine Positive (Negative); Barbiturates Screen Urine Negative (Negative); Benzodiazepines Screen Urine Negative (Negative); Cocaine Screen Urine Negative (Negative); Opiate Screen Urine Negative (Negative); PCP Screen Urine Negative (Negative); THC Screen Urine Positive (Negative)
--- NOTE | 2023-09-28 19:17 | PC.NURSE ---
pt stated at this time he is not homicidal or suicidal and wishes to go home at this time.
[2023-09-28 19:38] VITALS: RESP 16
== END 2023-09-28 19:52 | disposition home or self-care (01) ==
PROVIDERS: Emergency Provider Emergency Medicine; PCP Nurse Practitioner Family
DX: F43.9 Reaction to severe stress, unspecified (principal); F17.210 Nicotine dependence, cigarettes, uncomplicated
CPT/HCPCS: 36415; 80053; 80306; 80307; 85025; 99283

== ENCOUNTER → 2024-03-01 13:04 | Outpatient (BNVA) | payer MEDICAID, SELFPAY | PROVIDERS: PCP Nurse Practitioner Family; Visit Provider Internal Medicine Rheumatology | DX: M05.79 Rheumatoid arthritis with rheumatoid factor of multiple sites without organ or systems involvement (principal); Z79.899 Other long term (current) drug therapy; Z71.85 Encounter for immunization safety counseling; Z11.1 Encounter for screening for respiratory tuberculosis; Z11.59 Encounter for screening for other viral diseases; F17.210 Nicotine dependence, cigarettes, uncomplicated | CPT/HCPCS: 80076; 82565; 85025; 85651; 86140; 86480; 87517; 99214 ==

== ENCOUNTER → 2024-08-02 13:52 | Outpatient (BNVA) | payer MEDICAID, SELFPAY | PROVIDERS: PCP Nurse Practitioner Family; Visit Provider Internal Medicine Rheumatology | DX: M05.79 Rheumatoid arthritis with rheumatoid factor of multiple sites without organ or systems involvement (principal); Z79.899 Other long term (current) drug therapy | CPT/HCPCS: 36415; 80076; 82565; 85025; 85651; 86140 ==

== ENCOUNTER 2025-04-04 12:40 | Outpatient (CLI) | payer MEDICAID, SELFPAY ==
[2025-04-04 13:10] LABS: Hematocrit 42.1 % (37-53); Hemoglobin 13.80 g/dL (11.27-16.99); Mean Corpuscular HGB Conc 32.8 g/dL (30-55); Mean Corpuscular Hemoglobin 28.5 pg (27-33); Mean Corpuscular Volume 87.0 fl (82-101); Nucleated Red Blood Cells % 0 %; Platelet Count 239 10^3/cmm (157-399); Red Blood Count 4.84 10^6/uL (3.85-5.65); White Blood Count 3.88 10^3/uL (3.29-11.43)
[2025-04-04 13:34] LABS: Alanine Aminotransferase 12 U/L (0-41); Albumin Level 4.2 g/dL (3.5-5.2); Alkaline Phosphatase 95 U/L (40-130); Aspartate Amino Transferase 19 U/L (0-40); Globulin 3.5 g/dL (1.3-4.6); Total Protein 7.7 g/dL (6.6-8.7)
== END 2025-04-04 12:41 | disposition home or self-care (01) ==
LOC: LAB 12:43
PROVIDERS: PCP Nurse Practitioner Family; Visit Provider Internal Medicine Rheumatology
DX: Z79.899 Other long term (current) drug therapy (principal)
CPT/HCPCS: 36415; 80076; 82306; 82565; 85025; 85651; 86140; 86480

== ENCOUNTER 2025-04-17 13:44 | Outpatient (CLI) | payer MEDICAID, SELFPAY | END 2025-04-17 13:45 | disposition home or self-care (01) | LOC: LAB 13:45 | PROVIDERS: PCP Nurse Practitioner Family; Visit Provider Internal Medicine Rheumatology | DX: Z79.899 Other long term (current) drug therapy (principal) | CPT/HCPCS: 36415; 86480 ==